=== PATIENT | male | born 1985 | race African-American/Black ===

== ENCOUNTER 2021-03-29 11:13 | Emergency (ER) | payer SELFPAY ==
[2021-03-29 11:14] VITALS: BP 138/95; PULSE 90; RESP 15; TEMP 36.6; O2SAT 100; BMI 19.0
--- NOTE | 2021-03-29 11:23 | RAD_ITS ---
STUDY: X-RAY - UNILATERAL RIBS ( RIGHT ) WITH CHEST REASON FOR EXAM: Male, 35 years old. Status post fall. TECHNIQUE - RIBS: 4 view(s) of the ribs. TECHNIQUE - CHEST: Single frontal view of the chest. COMPARISON: None. FINDINGS - RIBS: Nondisplaced fracture of the anterior right ninth rib. FINDINGS - CHEST: The lungs are clear and expanded. There is no demonstrated pleural abnormality. Normal size heart. Normal mediastinum and vicki. Normal visualized pulmonary arteries. Normal visualized aortic arch and descending thoracic aorta. Normal visualized thoracic spine. There is no demonstrated abnormality of the visualized soft tissue structures of the upper abdomen. RAD/Ribs Uni Min 3V w/PA Chest IMPRESSION: RIBS: Fracture of the anterior right ninth rib. CHEST: No active pulmonary disease. Electronically Signed: Gilberto Yanez MD at 12:10 EDT Tel , Service support ,
--- NOTE | 2021-03-29 11:23 | EX.ED.DYSGE1 ---
HPI History of Present Illness Chief Complaint: Syncope Detail of Chief Complaint: Injury to right ribs that occurred 3 days ago Informant: patient Onset/Context/Timing Current Severity: Moderate Worsened by: Movement and sometimes with cough and deep breath Narrative Narrative: Patient presents to the emergency department complaining of right rib pain since a fall in the shower 3 days ago. Patient was in a tub shower where he is unsure if he passed out or slipped and fell and hit his ribs against the side of the tub. Patient remembers is waking up in the tub. Patient since that time is been having pain to the right ribs with movement and deep breath. He denies any hemoptysis. Denies headache or neck pain. Denies any other injuries. Prior similar symptoms: No PFSH PFSH Home Medications hydrocodone-acetaminophen 1 tab PO Q4H PRN PRN 3 Days #15 tablet 03/29/21 [Rx Last Taken Unknown] Allergy/AdvReac Type Severity Reaction Status Date / Time No Known Allergies Allergy Verified 03/29/21 11:14 Social History Smoking Status: Current every day smoker tobacco type: cigarettes ROS ROS ED Constitutional Constitutional ED: Reports systems reviewed and no addt'l complaints, except as documented; Denies body ache(s), change in weight or chills Eyes Eyes: Denies acute decrease in peripheral vision, change in vision, double vision or loss of vision ENT ENT ED: Reports none; Denies ear pain, lip swelling, loss taste/smell, neck pain, otalgia or sore throat Cardiovascular Cardiovascular: Reports none; Denies abdominal pain, chest pain with activity, leg edema, lightheadedness, palpitations, rapid heart rate or syncope Respiratory/Chest Respiratory/Chest: Reports none and other Details: Right rib pain ; Denies change in mental status, dry cough, dyspnea, hemoptysis, shortness of breath at rest or shortness of breath with exertion Gastrointestinal Gastrointestinal: Reports none; Denies abdominal pain, change in stool character, diarrhea, hematemesis, hematochezia, melena, rectal bleeding or vomiting Genitourinary Genitourinary ED: Reports none; Denies abdominal discomfort, anuria, dysuria, genital pain or polyuria Musculoskeletal Musculoskeletal: Reports none; Denies arthralgias, back pain, difficulty walking, extremity pain, muscle weakness or myalgias Integumentary Reports none; Denies abscess or rash Neurologic Neurologic: Reports none; Denies abnormal gait, confusion, focal weakness, frequent falls, headache(s), loss of vision, numbness, paresthesias, radicular pain, vertigo or weakness Psychiatric Psychiatric: Reports systems reviewed and no addt'l complaints, except as documented and none; Denies behavioral changes, confusion, difficulty concentrating, hallucinations, suicidal ideation, tactile hallucinations or visual hallucinations Endocrine Endocrinology: Denies none, cold intolerance, excessive sweating, fatigue or heat intolerance Hematologic/Lymphatic Hematologic/Lymphatic: Reports none; Denies anemia, easy bleeding or easy bruising Allergic/Immunologic Allergic/Immunologic ED: Denies as per HPI, none, lip swelling, mouth swelling, throat swelling, tongue swelling or hives EXAM Physical Exam Const Vital Signs: 03/29/21 11:14 03/29/21 11:38 Temperature 97.9 F Temperature Source Temporal Pulse Rate 90 Respiratory Rate 15 Respiratory Effort Normal Non-Labored Respiratory Pattern Normal Blood Pressure 138/95 H Blood Pressure Mean 109 Pulse Ox 100 Oxygen Delivery Method Room Air Positive well nourished and well developed General Appearance ED: well developed and NAD HEENT Reports TM's clear and moist mucous membranes normocephalic and atraumatic; Negative for trauma or tenderness Tympanic Membrane ED: Yes TM's clear Eyes PERRL and EOMs intact bilaterally General Eye ED: Negative for pale conjunctiva or scleral icterus Neck no lymphadenopathy, supple and no JVD General: Negative for tenderness Chest Wall inspection of chest normal; Negative for palpation of chest normal Chest Narrative: Patient has tenderness to palpation over the right lower ribs in the midaxillary line that reproduces his pain. There is no crepitus or subcu emphysema noted. No ecchymosis or bruising noted. Chest: Negative for tenderness Resp normal respiratory effort and clear to auscultation bilaterally Effort and Inspection: Negative for respiratory distress or pain with movement Auscultation: Negative for rhonchi, wheezes or diminished lung sounds Cardio regular rate, regular rhythm, S1 normal heart sound, S2 normal heart sound and no murmurs Peripheral Pulses: pulses 2+ throughout GI normal to inspection, nondistended, normoactive bowel sounds, soft to palpation, non-tender, non-distended and no masses Back/Spine no CVA tenderness and no thoracic nor lumbar tenderness Extremity normal to inspection General Extremety ED: Negative for edema General Extremity: Negative for edema Neuro oriented x3, CN's II-XII intact bilaterally, no sensory deficits noted and gait normal Sensorium / Orientation: awake, alert, oriented to person, oriented to place and oriented to time Motor Exam: strength 5/5 throughout and strength abnormal Psych mental status grossly normal Skin no rashes or lesions noted and no wounds MDM MDM MDM Narrative Medical decision making narrative: Patient has fracture of right ninth rib anteriorly. Patient will be given incentive spirometer and a prescription for [facility] for pain. Radiography Diagnostic Testing: Radiology Impression Ribs w/Chest X-Ray 03/29/21 11:23 IMPRESSION: RIBS: Fracture of the anterior right ninth rib. CHEST: No active pulmonary disease. Electronically Signed: Gilberto Yanez MD at 12:10 EDT Tel , Service support , Three-view x-ray of right ribs and chest interpreted by myself as questionable fracture of the right ninth rib. Radiology was in agreement that there was a right ninth rib fracture. Discharge Plan Triage Chief Complaint: Syncope ED Provider: Jalen Simmons Dx/Rx/DC Orders Clinical Impression: Closed rib fracture Instructions: ED Rib Fracture Prescriptions: New hydrocodone-acetaminophen [hydrocodone-acetaminophen] 1 TABLET tablet 1 tab PO Q4H PRN PRN (Reason: Pain) 3 Days Qty: 15 RF: 0 Primary Care Provider: NOT,DEFINED Referrals: Leandro Davis MD [STAFF PHYSICIAN] - 1 Week NOT,DEFINED [Primary Care Provider] - Disposition Disposition: Home, self care
--- NOTE | 2021-03-29 12:29 | ED.RN ---
IS given and educated on device. pt in understanding.
== END 2021-03-29 12:37 | disposition home or self-care (01) ==
PROVIDERS: Emergency Provider Emergency Medicine
DX: S22.31XA Fracture of one rib, right side, initial encounter for closed fracture (principal); W18.2XXA Fall in (into) shower or empty bathtub, initial encounter; Y93.9 Activity, unspecified; Y92.9 Unspecified place or not applicable; F17.210 Nicotine dependence, cigarettes, uncomplicated
CPT/HCPCS: 71101; 99282

== ENCOUNTER 2022-02-24 10:41 | Emergency (ER) | payer SELFPAY ==
[2022-02-24 10:42] VITALS: BP 184/104; PULSE 97; RESP 18; TEMP 36.7; O2SAT 98; BMI 20.7
--- NOTE | 2022-02-24 10:57 | EX.ED.DYSGE1 ---
HPI History of Present Illness Chief Complaint: General Illness Narrative Narrative: Patient who denies significant past medical history presents requesting a work note. He admits to drinking alcohol all weekend and he missed work yesterday. He denies any nausea or vomiting. No diarrhea. No fevers or chills. He is able to take p.o. fluids. He states he slept all day yesterday and did not eat anything. He is able to eat this morning. He presents because he states he wants a note to be excused from work today and yesterday. PFSH PFSH Home Medications hydrocodone-acetaminophen 1 tab PO Q4H PRN PRN 3 Days #15 tablet 03/29/21 [Rx Last Taken Unknown] Allergy/AdvReac Type Severity Reaction Status Date / Time No Known Allergies Allergy Verified 02/24/22 10:43 Social History Smoking Status: Current every day smoker tobacco type: cigarettes ROS ROS ED ROS Narrative Constitutional: No fever, no chills. HEENT: No sore throat. No neck pain. No loss of vision. No rhinorrhea. Cardiovascular: No chest pain. No palpitations. No pedal edema. Respiratory: No cough, no shortness of breath. Abdominal: No abdominal pain. No nausea. No vomiting. Genitourinary: No dysuria. No hematuria. Musculoskeletal: No myalgias. No arthralgias. Neurologic: No headaches. No dizziness. No lightheadedness. Skin: No rash. No change in color. Psychiatric: No depression. No anxiety. EXAM Physical Exam Narrative Exam Narrative: Afebrile. Vital signs noted. HEENT: Normocephalic. Atraumatic. PERRL, EOMI. Neck soft and supple. No point tenderness or step off. Cardiovascular: Regular rate and rhythm. No murmurs, rubs, or gallops appreciated. Respiratory: No tachypnea. Lungs clear to auscultation bilaterally. Gastrointestinal: Abdomen soft, nontender, with normoactive bowel sounds. No rebound or guarding. Neurological: Awake. Alert. Nonfocal, nonlateralizing. Skin: No rash. Normal color. No pallor. Musculoskeletal: No pedal edema. Full range of motion extremities. Const Vital Signs: 02/24/22 10:42 Temperature 98.1 F Temperature Source Temporal Pulse Rate 97 Respiratory Rate 18 Blood Pressure 184/104 H Blood Pressure Mean 130 Pulse Ox 98 Oxygen Delivery Method Room Air MDM MDM MDM Narrative Medical decision making narrative: Patient has an elevated blood pressure here. He was told that this needs to be addressed in the future. He is asymptomatic with this. He states that he is feeling well today, but not 100%. He was told that I am unable to write him a work note for yesterday because he was not seen in the emergency department. He was referred to her primary care physician. I feel he can be discharged safely home. Return instructions were reviewed. Disposition is discharged home in stable condition. Discharge Plan Triage Chief Complaint: General Illness ED Provider: Yong Costa Dx/Rx/DC Orders Clinical Impression: Encounter for medical screening examination, Elevated blood pressure reading without diagnosis of hypertension, Encounter to obtain excuse from work Instructions: ED Screening Exam Medical Nonurgent Prescriptions: No Action hydrocodone-acetaminophen [hydrocodone-acetaminophen] 1 TABLET tablet 1 tab PO Q4H PRN PRN (Reason: Pain) 3 Days Qty: 15 RF: 0 Stand Alone Forms: ED Work / School Excuse Primary Care Provider: Care Physician,No Primary Referrals: Phill Steiner, [STAFF PHYSICIAN] - 1-2 Days if not improving Care Physician,No Primary [Primary Care Provider] - Disposition Disposition: Home, Self Care
== END 2022-02-24 11:21 | disposition home or self-care (01) ==
PROVIDERS: Emergency Provider Emergency Medicine; Visit Provider Emergency Medicine
DX: R03.0 Elevated blood-pressure reading, without diagnosis of hypertension (principal); F17.210 Nicotine dependence, cigarettes, uncomplicated
CPT/HCPCS: 99282

== ENCOUNTER 2023-06-02 20:41 | Emergency (ER) | payer BC, SELFPAY ==
[2023-06-02 20:41] VITALS: BP 142/107; PULSE 101; RESP 15; TEMP 37; O2SAT 99; BMI 18.3
--- NOTE | 2023-06-02 22:15 | EX.ED.VIS.UR ---
HPI HPI - URI History of Present Illness Chief Complaint: Dizziness Informant: patient Narrative Narrative: 2-3 days of lightheadedness when he stands up, no vertiginous or disequilibrium symptoms, it goes away then and no near syncope or syncope. He states in that same period of time, he has had what felt like a mild cold. Nasal congestion without sinus pressure/pain or fevers or chills, some rhinorrhea and postnasal drip, cough that is nonproductive and less he coughs up what is dripping down the back of his throat, no sore throat, neck soreness/stiffness, or earache. Some headaches. No thunderclap onset or anything severe. He has taken no [id number] medications. He became concerned and came to the ER for 2 reasons, #1 he checked his blood pressure at home and it was in the 140s and he was concerned about that because normal for him is lower than that and #2, he needs a note for work. ROS ROS ED Constitutional Constitutional ED: Denies chills or fever(s) Eyes Eyes: Denies blurry vision, change in vision or diplopia ENT ENT ED: Reports headache(s), nasal congestion, nasal discharge and rhinorrhea; Denies ear pain, epistaxis, facial pain, hearing loss, sore throat, tinnitus or vertigo Cardiovascular Cardiovascular: Denies chest pain or palpitations Respiratory/Chest Respiratory/Chest: Reports cough; Denies dyspnea Gastrointestinal Gastrointestinal: Denies abdominal pain, diarrhea, nausea or vomiting Genitourinary Genitourinary ED: Denies dysuria or hematuria Musculoskeletal Musculoskeletal: Denies myalgias or neck pain Integumentary Denies abscess or rash Neurologic Neurologic: Reports headache(s); Denies paresthesias or weakness Psychiatric Psychiatric: Denies depression or suicidal thoughts Endocrine Endocrinology: Denies polydipsia or polyuria PFSH PFSH no medical history Home Medications hydrocodone-acetaminophen 5-325mg 5mg-325mg 1 tab PO Q4H PRN PRN Pain 3 days #15 TABLETS 03/29/21 [Rx Last Taken Unknown] Allergy/AdvReac Type Severity Reaction Status Date / Time No Known Allergies Allergy Verified 06/02/23 20:45 Social History Smoking Status: Current every day smoker tobacco type: cigarettes EXAM Physical Exam Const Vital Signs: 06/02/23 20:41 Temperature 98.6 F Temperature Source Temporal Pulse Rate 101 H Respiratory Rate 15 Blood Pressure 142/107 H Blood Pressure Mean 118 Pulse Ox 99 Oxygen Delivery Method Room Air Positive well nourished and well developed General Appearance ED: well developed and NAD HEENT Reports moist mucous membranes HEENT Narrative: Nasal discharge without significant nasal turbinate edema. normocephalic and atraumatic Face and Sinus: Negative for sinus tenderness or facial tenderness Throat: Negative for posterior oropharynx abnormal Eyes PERRL and EOMs intact bilaterally Neck no lymphadenopathy, supple and no meningeal signs General: Negative for anterior neck swelling Resp normal respiratory effort and clear to auscultation bilaterally Cardio no murmurs Rate: regular rate; Negative for tachycardic Rhythm: regular rhythm Extremity normal to inspection and full ROM Neuro oriented x3, CN's II-XII intact bilaterally and no sensory deficits noted Sensorium / Orientation: alert Motor Exam: strength 5/5 throughout Skin Lesions: no lesions Rashes: no rashes MDM MDM MDM Narrative Medical decision making narrative: Reassured this patient regarding his blood pressure. No treatment indicated, we do not need to put him on antihypertensives right now, he just needs to have this reevaluated when he is feeling better. He is not taking any [id number] decongestants. We discussed what he could take for his symptoms that would not affect his blood pressure and he states he is not interested in taking any cold medicines, if that is all it is he is okay just writing it out, he just wanted to make sure his blood pressure was not dangerous. He has readings here that are in the 140s as well, he is reassured this is not dangerous and he can follow-up as an outpatient for repeat blood pressure check, and he was given a work note. All questions answered at the bedside. We have seen a couple sporadic cases of COVID lately so I offered testing for COVID/influenza he declines both and wants to leave without testing. Discharge Plan Triage Chief Complaint: Dizziness ED Provider: Ron Torres Dx/Rx/DC Orders Clinical Impression: Viral URI with cough Instructions: ED URI, Viral, No Abx (Adult) Prescriptions: No Action hydrocodone-acetaminophen [hydrocodone-acetaminophen] 1 TABLET tablet 1 tab PO Q4H PRN PRN (Reason: Pain) 3 Days Qty: 15 0RF Stand Alone Forms: ED Work / School Excuse Primary Care Provider: Care Physician,No Primary Referrals: Doctor,Your [Non-Staff] - 1-2 Weeks (for BP recheck and reevaluation) Disposition Disposition: Home, Self Care
== END 2023-06-02 22:35 | disposition home or self-care (01) ==
LOC: ED 22:34
PROVIDERS: Emergency Provider Emergency Medicine; Visit Provider Emergency Medicine
DX: J06.9 Acute upper respiratory infection, unspecified (principal); F17.210 Nicotine dependence, cigarettes, uncomplicated; R05.9 Cough, unspecified
CPT/HCPCS: 99282

== ENCOUNTER 2023-06-26 06:29 | Emergency (ER) | payer BC, SELFPAY ==
[2023-06-26 06:31] VITALS: BP 127/97; PULSE 90; RESP 18; TEMP 36.6; O2SAT 98; BMI 17.8
--- NOTE | 2023-06-26 07:17 | EX.ED.DYSGE1 ---
HPI History of Present Illness Chief Complaint: Hypertension Informant: patient Onset/Context/Timing Onset: Weeks (2) Context: Sudden Onset Timing: Continuous Worsened by: Nothing Relieved by: Nothing Narrative Narrative: Patient presents with evaded blood pressure for the past 2 weeks. Patient states that his blood pressure was 141/103 at home. Patient states that he was told by his employer that he needed to have his blood pressure rechecked before he is able to return to work. Patient states he does a lot of lifting at work. Patient denies any chest pain or shortness of breath. Patient denies any nausea or vomiting. Patient denies any headaches or visual changes. Patient denies any neck or back pain. [facility] Medical History (Updated 06/26/23 @ 07:[address] Leandro Lee DO) Hypertension Home Medications NK 06/26/23 [History Last Taken Unknown] Allergy/AdvReac Type Severity Reaction Status Date / Time No Known Allergies Allergy Verified 06/26/23 06:30 Surgical History (Updated 06/26/23 @ 07:[address] Leandro Lee DO) History of facial surgery Social History (Updated 06/26/23 @ 07:[address] Leandro Lee DO) Smoking Status: Current every day smoker tobacco type: cigarettes alcohol intake: current substance use type: marijuana ROS ROS ED Constitutional Constitutional ED: Denies chills or fever(s) Eyes Eyes: Denies blurry vision or change in vision ENT ENT ED: Denies rhinorrhea or sore throat Cardiovascular Cardiovascular: Denies chest pain or palpitations Respiratory/Chest Respiratory/Chest: Denies cough or dyspnea Gastrointestinal Gastrointestinal: Denies nausea or vomiting Genitourinary Genitourinary ED: Denies dysuria or hematuria Musculoskeletal Musculoskeletal: Denies back pain or neck pain Integumentary Denies abscess or rash Neurologic Neurologic: Denies headache(s) or weakness Allergic/Immunologic Allergic/Immunologic ED: Denies mouth swelling or urticaria EXAM Physical Exam Const Vital Signs: 06/26/23 06:31 06/26/23 06:33 Temperature 97.8 F Temperature Source Temporal Pulse Rate 90 Respiratory Rate 18 Respiratory Effort Normal Respiratory Pattern Normal Blood Pressure 127/97 H Blood Pressure Mean 107 Pulse Ox 98 Oxygen Delivery Method Room Air Positive well nourished and well developed General Appearance ED: well developed HEENT Reports moist mucous membranes Neck supple and no JVD Resp normal respiratory effort and clear to auscultation bilaterally Cardio regular rate, regular rhythm and no murmurs GI normal to inspection, nondistended, normoactive bowel sounds and non-tender Palpation: soft Extremity normal to inspection General Extremety ED: Negative for edema or tenderness General Extremity: Negative for edema Neuro oriented x3, CN's II-XII intact bilaterally and no sensory deficits noted Sensorium / Orientation: alert Motor Exam: strength 5/5 throughout Psych mental status grossly normal Skin no rashes or lesions noted MDM MDM MDM Narrative Medical decision making narrative: Patient was advised that his blood pressure today is 127/97. There is no need for emergency treatment of his blood pressure at this time. Patient was given a referral for a primary care physician follow-up to continue to have his blood pressure monitored. Patient was given a note to be able to return to work today. Patient was instructed return if worse in any way. Patient understood and was agreeable with plan. All questions were answered. Discharge Plan Triage Chief Complaint: Hypertension ED Provider: Leandro Lee Dx/Rx/DC Orders Clinical Impression: Elevated blood pressure reading without diagnosis of hypertension Instructions: ED Hypertension, To Be Confirmed Prescriptions: No Action NK Stand Alone Forms: ED Work / School Excuse Primary Care Provider: Care Physician,No Primary Referrals: Leandro Davis MD [Med Staff - Photograph Retoucher] - 5-7 Days Care Physician,No Primary [Primary Care Provider] - Disposition Disposition: Home, Self Care
== END 2023-06-26 07:32 | disposition home or self-care (01) ==
LOC: ED 07:31
PROVIDERS: Emergency Provider Emergency Medicine; Visit Provider Emergency Medicine
DX: R03.0 Elevated blood-pressure reading, without diagnosis of hypertension (principal); F17.210 Nicotine dependence, cigarettes, uncomplicated
CPT/HCPCS: 99282

== ENCOUNTER 2025-04-27 03:06 | Emergency (ER) | payer SELFPAY ==
[2025-04-27 03:07] VITALS: BP 121/81; PULSE 101; RESP 18; TEMP 36.1; O2SAT 99; BMI 19.0
--- NOTE | 2025-04-27 03:19 | RAD_ITS ---
PROCEDURE: WRIST MIN 3 VIEWS 04/27/2025 REASON FOR EXAM: PAIN TECHNIQUE: WRIST MIN 3 VIEWS COMPARISON: No FINDINGS: No acute fracture or dislocation. Old 5th metacarpal neck fracture. RAD/Wrist min 3 Views IMPRESSION: No acute findings Reading Location: [place] [id number]
--- NOTE | 2025-04-27 03:27 | EDS_ITS ---
HPI History of Present Illness Chief Complaint: Upper Extremity Injury Narrative Narrative: Chief complaint and HPI: Right hand and wrist pain. 39-year-old male with no significant past medical history presents for evaluation of right hand and wrist pain. Patient states earlier today around 2 PM he tripped and had a mechanical fall at work. States that he landed on his outstretched hand. States he has had pain in his hand and wrist since the incident. Has taken Aleve and smoked marijuana for the pain. Denies any injury elsewhere. Did not hit his head. No LOC. Denies any numbness or tingling. Review of systems: See HPI Medications: As listed on the chart Allergies: As listed on the chart PFSH: Per chart Vital signs: As listed on the chart. Reviewed. Physical exam: Gen: A&O x3, NAD Head: Normocephalic, atraumatic Eyes: No sclera icterus, injected conjunctiva ENT: Moist mucous membranes Neck: Full range of motion CV: Regular rate Resp: Nonlabored respirations Musc: Full ROM of the right upper extremity including wrist, hand, fingers. Patient has tenderness to palpation of the wrist and hand diffusely on the dorsal aspect, no lacerations or abrasions, no swelling or ecchymosis, no deformity, good capillary refill, radial pulse +2, compartments soft Skin: Warm, dry Neuro: Alert, oriented, grossly intact, sensation intact Psych: Cooperative, appropriate mood and affect [facility] Medical History (Updated 04/27/25 @ 04:[address] Ranjit Mccollum, ) Hypertension Home Medications ?Medication ?Instructions ?Recorded ?Last Taken ?Type NK 06/26/23 Unknown History Allergy/AdvReac Type Severity Reaction Status Date / Time No Known Allergies Allergy Verified 04/27/25 03:09 Surgical History History of facial surgery Social History (Updated 06/26/23 @ 07:[address] Leandro Lee, DO) Smoking Status: Current every day smoker tobacco type: cigarettes alcohol intake: current substance use type: marijuana EXAM Physical Exam Const Vital Signs: 04/27/25 03:07 Temperature 97.0 F L Temperature Source Oral Pulse Rate 101 H Respiratory Rate 18 Blood Pressure 121/81 H Blood Pressure Mean 94 Pulse Ox 99 MDM MDM MDM Narrative Medical decision making narrative: 39-year-old male with no significant past medical history presents for evaluation of right hand and wrist pain. Patient states earlier today around 2 PM he tripped and had a mechanical fall at work. States that he landed on his outstretched hand. States he has had pain in his hand and wrist since the incident. Has taken Aleve and smoked marijuana for the pain. Denies injury elsewhere. Patient states that he does not want to file for Worker's Compensation. Given that patient admits to marijuana abuse, no narcotics will be given. He had already taken Aleve. Declined Tylenol. Differential diagnosis includes but is not limited to contusion, sprain, fracture. X-ray of the right hand and wrist were obtained. X-rays of the right hand and wrist were personally reviewed and interpreted by me, ED physician. No acute fracture or dislocation. Per radiology he has an old fifth metacarpal neck fracture. On reevaluation, patient states that he does have a history of an old fifth metacarpal neck fracture. He has no significant pain in this area on reevaluation. Patient's pain is likely secondary to hand contusion and mild wrist sprain. Recommended RICE therapy. Follow-up with PCP. He confirmed understanding the plan. Impression: 1. Right hand contusion 2. Right wrist sprain 3. Mechanical fall at work Discharge Plan Triage Chief Complaint: Upper Extremity Injury ED Provider: Ranjit Mccollum Dx/Rx/DC Orders Clinical Impression: Contusion of hand, right, Right wrist sprain Instructions: ED Hand Contusion, ED Wrist Sprain Prescriptions: No Action NK Primary Care Provider: Care Physician,No Primary Referrals: Oswald Wright MD [Med Staff - Active Staff] - 3-5 Days Activity Restrictions/Additional Instructions: Tylenol and Motrin as needed for pain. Follow-up with primary care physician. If you do not have one follow-up with the one provided above. Return back to the ED if symptoms change or worsen. Print Language: Citizen Of [place] Disposition Disposition: Home, Self Care Discharge Date/Time: 04/27/25 04:17
--- NOTE | 2025-04-27 03:35 | RAD_ITS ---
PROCEDURE: HAND MIN 3 VIEWS 04/27/2025 REASON FOR EXAM: PAIN TECHNIQUE: HAND MIN 3 VIEWS COMPARISON: No FINDINGS: Old 5th metacarpal neck fracture. No acute fracture or dislocation. RAD/Hand Min 3 Views IMPRESSION: No acute findings Reading Location: [place] [id number]
--- OUTSIDE RECORDS SUMMARY | 2025-04-27 03:39 | XMS RPT_ITS | CCD ---
Author Organization [facility] Care Team Providers Care Service Dispatcher Name Role Phone Unavailable Primary Care Provider Ron Gonzales Attending Unavailable Care Physician, No Primary Primary Care Unava ilable Medications Current Medications Medication Drug Class(es) Dates Sig (Normalized) Sig (Original) [place] (Nk) (1 source) Start: 06-26-2023 [place] (Nk) A ctive June 26, 2023 12:00am Completed/Discontinued Medications Medication Drug Class(es) Dates Sig (Normalized) Sig (Original) acetaminophen 325 mg / HYDROcodone bitartrate 5 mg oral tablet (3 sources) Opioid Agonist Start: 03-29-2021 End: 06-26-2023 take 1 tablet by mouth every four hours as needed Hydrocodone-Acetami nophen Discontinued 1 TABLET PO EVERY 4 HOURS NEEDED 15 March 29, 2021 June 26, 2023 6:30am Problems Problem Classification Problem Date Documented Date Episodic/Chronic Administrative/social admission (6 sources) Patient encounter status; Translations: [Encounter for other administrative examinations] 03-04-2022 Episodic Other circulatory disease (5 sources) Elevated blood-pressure reading without diagnosis of hypertension; Translations: [Elevated blood-pressure reading, without diagnosis of hypertension] 05-10-2023 Episodic Other fractures (3 sources) Fracture of rib; Translations: [Fracture of one rib, unspecified side, initial encounter for closed fracture] 03-29-2021 Episodic Other fractures (3 sources) Closed fracture of rib; Translations: [Fracture of one rib, unspecified side, initial encounter for closed fracture] 03-29-2021 Episodic Other upper respiratory infections (3 sources) Viral upper respiratory tract infection; Translations: [Acute upper respiratory infection, unspecified] Onset: 06-08-2023 06-02-2023 Episodic Syncope (2 sources) Near syncope; Translations: [Syncope and collapse] 05-10-2023 Episodic Results Test Name Value Interpretation Reference Range Nicole bearden Emergency Department Summary on 06-03-2023 Emergency Department Summary [facility] Medical Records Department [address] [place] [address] Emergency Department Summary 06/02/23 MR#: [id number] Acct: [id number] Name: BYRON WOOD Rep #: [id number] : 1985 37 From: Ron Torres MD PCP: Care Physician,No Primary Status:PRE ER Location: ED HPI HPI - URI History of Present Illness Chief Complaint: Dizziness Informant: patient Narrative Narrative: 2-3 days of lightheadedness when he stands up, no vertiginous or disequilibrium symptoms, it goes away then and no near syncope or syncope. He states in that same period of time, he has had what felt like a mild cold. Nasal congestion without sinus pressure/pain or fevers or chills, some rhinorrhea and postnasal drip, cough that is nonproductive and less he coughs up what is dripping down the back of his throat, no sore throat, neck soreness/stiffness, or earache. Some headaches. No thunderclap onset or anything severe. He has taken no uqyi-ihu-citptrk medications. He became concerned and came to the ER for 2 reasons, #1 he checked his blood pressure at home and it was in the 140s and he was concerned about that because normal for him is lower than that and #2, he needs a note for work. ROS ROS ED Constitutional Constitutional ED: Denies chills or fever(s) Eyes Eyes: Denies blurry vision, change in vision or diplopia ENT ENT ED: Reports headache(s), nasal congestion, nasal discharge and rhinorrhea; Denies ear pain, epistaxis, facial pain, hearing loss, sore throat, tinnitus or vertigo Cardiovascular Cardiovascular: Denies chest pain or palpitations Respiratory/Chest Respiratory/Chest: Reports cough; Denies dyspnea Gastrointestinal Gastrointestinal: Denies abdominal pain, diarrhea, nausea or vomiting Genitourinary Genitourinary ED: Denies dysuria or hematuria Musculoskeletal Musculoskeletal: Denies myalgias or neck pain Integumentary Denies abscess or rash Neurologic Neurologic: Reports headache(s); Denies paresthesias or weakness Psychiatric Psychiatric: Denies depression or suicidal thoughts Endocrine Endocrinology: Denies polydipsia or polyuria PFSH PFSH no medical history Home Medications hydrocodone-acetaminoph en 5-325mg 5mg-325mg 1 tab PO Q4H PRN PRN Pain 3 days #15 TABLETS 03/29/21 [Rx Last Taken Unknown] Allergy/AdvReac Type Severity Reaction Status Date / Time No Known Allergies Allergy Verified 06/02/23 20:45 Social History Smoking Status: Current every day smoker tobacco type: cigarettes EXAM Physical Exam Const Vital Signs: 06/02/23 20:41 Temperature 98.6 F Temperature Source Temporal Pulse Rate 101 H Respiratory Rate 15 Blood Pressure 142/107 H Blood Pressure Mean 118 Pulse Ox 99 Oxygen Delivery Method Room Air Positive well nourished and well developed General Appearance ED: well developed and NAD HEENT Reports moist mucous membranes HEENT Narrative: Nasal discharge without significant nasal turbinate edema. normocephalic and atraumatic Face and Sinus: Negative for sinus tenderness or facial tenderness Throat: Negative for posterior oropharynx abnormal Eyes PERRL and EOMs intact bilaterally Neck no lymphadenopathy, supple and no meningeal signs General: Negative for anterior neck swelling Resp normal respiratory effort and clear to auscultation bilaterally Cardio no murmurs Rate: regular rate; Negative for tachycardic Rhythm: regular rhythm Extremity normal to inspection and full ROM Neuro oriented x3, CN's II-XII intact bilaterally and no sensory deficits noted Sensorium / Orientation: alert Motor Exam: strength 5/5 throughout Skin Lesions: no lesions Rashes: no rashes MDM MDM MDM Narrative Medical decision making narrative: Reassured this patient regarding his blood pressure. No treatment indicated, we do not need to put him on antihypertensives right now, he just needs to have this reevaluated when he is feeling better. He is not taking any rwfq-spa-lfvcupk decongestants. We discussed what he could take for his symptoms that would not affect his blood pressure and he states he is not interested in taking any cold medicines, if that is all it is he is okay just writing it out, he just wanted to make sure his blood pressure was not dangerous. He has readings here that are in the 140s as well, he is reassured this is not dangerous and he can follow-up as an outpatient for repeat blood pressure check, and he was given a work note. All questions answered at the bedside. We have seen a couple sporadic cases of COVID lately so I offered testing for COVID/influenza he declines both and wants to leave without testing. Discharge Plan Triage Chief Complaint: Dizziness ED Provider: Ron Torres (more content not included)... Normal [facility] CNOVon 06-02-2023 CNOV Office Visit ([facility] ) BYRON WOOD ([id number]) 1985 M Date Time Provider Department 06/02/23 3:30 PM DUC LIU [facility] During your visit today, we recorded the following information about you: Duc Liu PA-C 06/02/2023 3:33 PM Signed Patient presents to [facility] triage with a chief complaint of near syncope. The past few days he is felt that he may pass out. Feels lightheaded. He was seen here for similar complaints, 05/10/23. Discussed with patient for near syncope would recommend ER evaluation. Patient will go to [facility] ED. Allergies As of Date: 06/02/2023 (No Known Allergies) Date Reviewed: 05/10/2023 Reviewed by: Margarita Chavez MA - Fully Assessed Primary Visit Diagnosis:Near syncope [R55] Problem List As Of Date: 06/02/2023 (None) Encounter Status:Closed by DUC LIU on 06/02/23 [facility] CNOVon 05-10-2023 CNOV Office Visit ([facility] ) BYRON WOOD ([id number]) 1985 M Date Time Provider Department 05/10/23 4:45 PM KATYA ECHEVERRIA [facility] During your visit today, we recorded the following information about you: Temperature Pulse Respiration Blood pressure 97.5 degrees 99/minute 18/minute 140/92 Weight 60.9 kg Katya Echeverria APRN.WELDING MACHINE OPERATOR GAS 05/10/2023 5:06 PM Signed Subjective Dizziness The patient's pertinent negatives include no focal weakness or weakness. Associated symptoms include dizziness. Pertinent negatives include no abdominal pain, chest pain, fever, headaches, nausea, shortness of breath or vomiting. Byron Wood is a 37 year old male who presents to [facility] care for a work excuse. He was seeing spots last night and almost passed out so had to leave work. He slept more than usual today and feels better now. He needs a note to return to work. He denies any fever or chills or nausea or vomiting. He has not had any episodes today like he had last night at work. His blood pressure is noted to be slightly elevated at 140/92. He has a family history of heart disease. Review of Systems Constitutional: Negative for chills and fever. HENT: Negative for congestion, ear pain and sore throat. Eyes: Negative for blurred vision and double vision. Respiratory: Negative for cough and shortness of breath. Cardiovascular: Negative for chest pain. Gastrointestinal: Negative for abdominal pain, nausea and vomiting. Genitourinary: Negative. Musculoskeletal: Negative for myalgias. Skin: Negative for rash. Neurological: Positive for dizziness. Negative for tingling, tremors, sensory change, speech change, focal weakness, seizures, loss of consciousness, weakness and headaches. BP 140/92 Pulse 99 Temp 36.4 ?C (97.5 ?F) Resp 18 Wt 60.9 kg (134 lb 3.2 oz) SpO2 99% No past medical history on file. No past surgical history on file. ALLERGIES Patient has no known allergies. MEDICATIONS No prescriptions on file. No family history on file. Social History Tobacco Use Smoking status: Every Day Types: Cigarettes Smokeless tobacco: Never Objective Physical Exam Vitals and nursing note reviewed. Constitutional: Appearance: Normal appearance. HENT: Right Ear: Tympanic membrane, ear canal and external ear normal. Left Ear: Tympanic membrane, ear canal and external ear normal. Nose: Nose normal. Mouth/Throat: Mouth: Mucous membranes are moist. Pharynx: Oropharynx is clear. Uvula midline. No oropharyngeal exudate or posterior oropharyngeal erythema. Cardiovascular: Rate and Rhythm: Normal rate and regular rhythm. Heart sounds: Normal heart sounds. Pulmonary: Effort: Pulmonary effort is normal. No respiratory distress. Breath sounds: Normal breath sounds. No wheezing or rales. Musculoskeletal: Cervical back: Neck supple. Lymphadenopathy: Cervical: No cervical adenopathy. Skin: General: Skin is warm and dry. Findings: No erythema or rash. Neurological: Mental Status: He is alert. ASSESSMENT/PLAN: 1. Near syncope - ICD9: 780.2, ICD10: R55 (primary diagnosis) - GLUCOSE, BLOOD (POC)- 150 in office. - UA DIP, URINE (POC)- no sign of dehydration. 2. Elevated blood pressure reading without diagnosis of hypertension - ICD9: 796.2, ICD10: R03.0 - Encouraged dietary sodium restriction/DASH diet - Recommended regular aerobic exercise. - Recommend home blood pressure monitoring, to bring results in on next visit. Patient will return to [facility] on 05/18/23 for BP recheck. If it is still elevated, I will see him and determine further treatment at that time. He does not currently have a PCP. - Encouraged avoidance of excessive alcohol intake - Reviewed risks of HTN and principles of treatment - Goal of BP <130/80 - Patient counseled on smoking cessation. - Follow-up with your PCP in 3-5 days if symptoms have not improved or sooner if symptoms worsen - Discussed red flags and need for immediate medical evaluation if any occur. - Discussed supportive care treatment with fluids, rest and analgesia. - Discussed expected course of illness ARJUN Rosenthal APRN.CNP 05/10/2023 5:00 PM Addendum ASSESSMENT/PLAN: 1. Near syncope - ICD9: 780.2, ICD10: R55 (primary diagnosis) - GLUCOSE, BLOOD (POC)- 150 in office. - UA DIP, URINE (POC)- no sign of dehydration. 2. Elevated blood pressure reading without diagnosis of hypertension - ICD9: 796.2, ICD10: R03.0 - Encouraged dietary sodium restriction/DASH diet - Recommended regular aerobic exercise. - Recommend home blood pressure monitoring, to bring results in on next visit - Encouraged avoidance of excessive alcohol intake - Reviewed risks of HTN and principles of treatment - Goal of BP <130/80 - Patient counseled on smoking cessation. - Follow-up with your PCP in 3-5 days (more content not included)... [facility] GLUCOSE, BLOOD (POC)on 05-10 Glucose [Mass/Vol] 150 mg/dL Abnormal 74 - 99 mg/dL [facility] UA DIP, URINE (POC)on 2022 BILIRUBIN UA (POCT) Negative Negative [facility] CLARITY UA (POCT) Clear [facility] COLOR UA (POCT) Yellow [facility] GLUCOSE UA (POCT) Negative Negative mg/dL [facility] HEMOGLOBIN/BLOOD UA (POCT) Negative Negative [facility] KETONE UA (POCT) Negative Negative mg/dL [facility] LEUKOCYTES UA (POCT) Negative Negative [facility] NITRITE UA (POCT) Negative Negative [facility] PH UA (POCT) 6.0 4.5 - 8.0 [facility] Protein Ql (U) Trace Abnormal Negative mg/dL [facility] SPECIFIC GRAVITY UA (POCT) 1.010 1.005 - 1.030 [facility] UROBILINOGEN UA (POCT) 0.2 E.U./dL Normal E.U./dL [facility] Vital Signs Date Time Vital Sign Value Performing Clinician Pro fernandez 06-26-2023 06:31-0400 Body height 185.42 cm [facility] 06-26-2023 06:31-0400 Body mass index (BMI) [Ratio] 17.8 kg/m2 [facility] 06-26-2023 06:31-0400 Body temperature 97.8 [degF] [facility] 06-26-2023 06:31-0400 Body weight 61.23 kg [facility] 06-26-2023 06:31-0400 Diastolic blood pressure 97 mm[Hg] [facility] 06-26-2023 06:31-0400 Heart rate 90 /min [facility] 06-26-2023 06:31-0400 Respiratory rate 18 /min [facility] 06-26-2023 06:31-0400 SaO2% (BldA) [Mass fraction] 98 % [facility] 06-26-2023 06:31-0400 Systolic blood pressure 127 mm[Hg] [facility] 06-02-2023 20:41-0400 Body height 185.42 cm [facility] 06-02-2023 20:41-0400 Body mass index (BMI) [Ratio] 18.3 kg/m2 [facility] 06-02-2023 20:41-0400 Body temperature 98.6 [degF] [facility] 06-02-2023 20:41-0400 Body weight 62.95 kg [facility] 06-02-2023 20:41-0400 Diastolic blood pressure 107 mm[Hg] [facility] 06-02-2023 20:41-0400 Heart rate 101 /min [facility] 06-02-2023 20:41-0400 Respiratory rate 15 /min [facility] 06-02-2023 20:41-0400 SaO2% (BldA) [Mass fraction] 99 % [facility] 06-02-2023 20:41-0400 Systolic blood pressure 142 mm[Hg] [facility] 05-10-2023 16:39-0400 Body temperature 97.5 [degF] Katya Praisler-Wood SOFTWARE SPECIALIST.WELDING MACHINE OPERATOR GAS Work Phone: [facility] 05-10-2023 16:39-0400 Body weight 60.87 kg Katya Praisler-Wood SOFTWARE SPECIALIST.WELDING MACHINE OPERATOR GAS Work Phone: [facility] 05-10-2023 16:39-0400 Diastolic blood pressure 92 mm[Hg] Katya Praisler-Wood SOFTWARE SPECIALIST.WELDING MACHINE OPERATOR GAS Work Phone: [facility] 05-10-2023 16:39-0400 Heart rate 99 /min Katya Praisler-Wood SOFTWARE SPECIALIST.WELDING MACHINE OPERATOR GAS Work Phone: [facility] 05-10-2023 16:39-0400 Respiratory rate 18 /min Katya Praisler-Wood SOFTWARE SPECIALIST.WELDING MACHINE OPERATOR GAS Work Phone: [facility] 05-10-2023 16:39-0400 SaO2% (BldA) [Mass fraction] 99 % Katyayamilet Echeverria APRN.WELDING MACHINE OPERATOR GAS Work Phone: [facility] 05-10-2023 16:39-0400 Systolic blood pressure 140 mm[Hg] Katya Echeverria APRN.WELDING MACHINE OPERATOR GAS Work Phone: [facility] 02-24-2022 10:42-0400 Body height 177.8 cm [facility] Work Phone: 02-24-2022 10:42-0400 Body mass index (BMI) [Ratio] 20.7 kg/m2 [facility] Work Phone: 02-24-2022 10:42-0400 Body temperature 98.1 [degF] [facility] Work Phone: 02-24-2022 10:42-0400 Body weight 65.77 kg [facility] Work Phone: 02-24-2022 10:42-0400 Diastolic blood pressure 104 mm[Hg] [facility] Work Phone: 02-24-2022 10:42-0400 Heart rate 97 /min [facility] Work Phone: 02-24-2022 10:42-0400 Respiratory rate 18 /min [facility] Work Phone: 02-24-2022 10:42-0400 SaO2% (BldA) [Mass fraction] 98 % [facility] Work Phone: 02-24-2022 10:42-0400 Systolic blood pressure 184 mm[Hg] [facility] Work Phone: Encounters Encounter Date Encounter Type Care Provider Facility Start: 06-26-2023 End: 06-26-2023 Emergency department patient visit [facility] Work Phone: Start: 06-02-2023 End: 06-03-2023 Emergency department patient visit Ron Torres Facility:[facility] Start: 06-02-2023 End: 06-02-2023 Emergency department patient visit [facility] Work Phone: Start: 06-02-2023 End: 06-02-2023 ambulatory Facility:[facility] Start: 06-02-2023 End: 06-02-2023 Patient encounter procedure Duc Liu PA-C Work Phone: [facility] Comment on above: Near syncope (Primar y Dx) Start: 05-10-2023 End: 05-10-2023 ambulatory Facility:[facility] Start: 05-10-2023 End: 05-10-2023 Patient encounter procedure Katya Echeverria APRN.CNP Work Phone: [facility] Comment on above: Near syncope (Primar y Dx); Elevated blood pressure reading without diagnosis of hypertension Start: 02-24-2022 End: 02-24-2022 Emergency department patient visit [facility] Procedures Date Procedure Procedure Detail Performing Clinician Start: 05-10-2023 Urnls dip stick/tabl et rgnt auto w/o microscopy Katya Echeverria APRN.CNP Work Phone: Start: 05-10-2023 Gluc bld gluc mntr d ev cleared fda spec home use Katya Echeverria APRN.CNP Work Phone: Plan of Treatment Date Care Activity Detail Author Start: 07-02-2023 Influenza vaccination INFLUENZA (#1) [facility] Start: 11-01-2022 DEPRESSION ASSESSMENT DEPRESSION ASSESSMENT [facility] Start: 2020 LIPID SCREEN LIPID SCREEN [facility] Start: 2004 Urine microalbumin profile DTAP,TDAP,TD (1 - Tdap) [facility] Start: 2003 HEPATITIS C SCREENING HEPATITIS C SCREENING [facility] Start: 2003 HIV SCREENING HIV SCREENING [facility] Start: 1991 PNEUMOCOCCAL (1 - PCV) PNEUMOCOCCAL (1 - PCV) [facility] Start: 04-20-1986 COVID-19 VACCINE (#1) COVID-19 VACCINE (#1) [facility] Start: 1985 HEPATITIS B (1 of 3 - 3-dose series) HEPATITIS B (1 of 3 - 3-dose series) [facility] Patient Education [facility] Work Phone: Patient referral [facility] Work Phone: Payers Date Payer Category Payer Self-pay [id number] 2023 Unknown [id number] Unknown [id number] Social History Date Type Detail Facility Start: 02-24-2022 End: 06-26-2023 Tobacco smoking status NJIS Unknown if ever smoked [facility] Start: 1985 Sex Assigned At Male [facility] Start: 05-10-2023 Tobacco smoking stat [facility] Smokes tobacco daily [facility] History of tobacco use Cigarette Smoker [facility] Start: 05-10-2023 Tobacco use and exposure Smokeless tobacco non-user [facility] Start: 05-10-2023 History of Social function [facility] Start: 05-10-2023 Tobacco use panel [facility] Start: 1985 Sex Assigned At [facility] Mental Status Date Assessment Result Facility 06-26-2023 Cognitive function Level Of Cons ciousness Awake;Alert;Appropriate;Follow s Commands [facility] Work Phone: 06-02-2023 Cognitive function Level Of Cons ciousness Awake;Alert;Appropriate;Follow s Commands [facility] Work Phone: 02-24-2022 Cognitive function Level Of Cons ciousness Awake;Alert;Appropriate;Follow s Commands [facility] Work Phone: Progress note 06-02-2023 Note Date & Type Note Facility 06-02-2023 Note HNO ID: [id number] Author: Athy, Duc R, PA-C Service: ? Author Type: Physician Radar Scientist Type: Progress Notes Filed: 06/02/2023 3:33 PM Note Text: Patient presents to express care triage with a chief complaint of near syncope. The past few days he is felt that he may pass out. Feels lightheaded. He was seen here for similar complaints, 05/10/23. Discussed with patient for near syncope would recommend ER evaluation. Patient will go to [facility] ED. [facility] History of Present illness Narrative 06-02-2023 Duc Liu PA-C - 06/02/2023 3:31 PM EDT Note Date & Type Note Facility 06-02-2023 History of Presen t illness Narrative Patient presents to express care triage with a chief complaint of near syncope. The past few days he is felt that he may pass out. Feels lightheaded. He was seen here for similar complaints, 05/10/23. Discussed with patient for near syncope would recommend ER evaluation. Patient will go to [facility] ED. documented in this encounter [facility] Discharge summary 06-02-2023 Note Date & Type Note Facility 06-02-2023 Discharge summary Note Date/Time June 02, 2023 10:20pm [facility] Medical Records Department [address] [place] [address] Emergency Department Summary 06/02/23 MR#: [id number] Acct: [id number] Name: BYRON WOOD Rep #:[id number] : 1985 37 From: Ron Torres MD PCP: Care Physician,No Primary Status :PRE ER Location: ED HPI HPI - URI History of Present Illness Chief Complaint: Dizziness Informant: patient Narrative Narrative: 2-3 days of lightheadedness when he stands up, no vertiginous or disequilibrium symptoms, it goes away then and no near syncope or syncope. He states in that same period of time, he has had what felt like a mild cold. Nasal congestion without sinus pressure/pain or fevers or chills, some rhinorrhea and postnasal drip, cough that is nonproductive and less he coughs up what is dripping down the back of his throat, no sore throat, neck soreness/stiffness, or earache. Some headaches. No thunderclap onset or anything severe. He has taken no ydpy-syi-viypehq medications. He became concerned and came to the ER for 2 reasons, #1 he checked his blood pressure at home and it was in the 140s and he was concerned about that because normal for him is lower than that and #2, he needs a note for work. ROS ROS ED Constitutional Constitutional ED: Denies chills or fever(s) Eyes Eyes: Denies blurry vision, change in vision or diplopia ENT ENT ED: Reports headache(s), nasal congestion, nasal discharge and rhinorrhea; Denies ear pain, epistaxis, facial pain, hearing loss, sore throat, tinnitus or vertigo Cardiovascular Cardiovascular: Denies chest pain or palpitations Respiratory/Chest Respiratory/Chest: Reports cough; Denies dyspnea Gastrointestinal Gastrointestinal: Denies abdominal pain, diarrhea, nausea or vomiting Genitourinary Genitourinary ED: Denies dysuria or hematuria Musculoskeletal Musculoskeletal: Denies myalgias or neck pain Integumentary Denies abscess or rash Neurologic Neurologic: Reports headache(s); Denies paresthesias or weakness Psychiatric Psychiatric: Denies depression or suicidal thoughts Endocrine Endocrinology: Denies polydipsia or polyuria PFSH PFSH no medical history Home Medications hydrocodone-acetaminophen 5-325mg 5mg-325mg 1 tab PO Q4H PRN PRN Pain 3 days #15TABLETS 03/29/21 [Rx Last Taken Unknown] Allergy/AdvReac Type Severity Reaction Status Date / Time No Known Allergies Allergy Verified 06/02/23 20:45 Social History Smoking Status: Current every day smoker tobacco type: cigarettes EXAM Physical Exam Const Vital Signs: 06/02/23 20:41 Temperature 98.6 F Temperature Source Temporal Pulse Rate 101 H Respiratory Rate 15 Blood Pressure 142/107 H Blood Pressure Mean 118 Pulse Ox 99 Oxygen Delivery Method Room Air Positive well nourished and well developed General Appearance ED: well developed and NAD HEENT Reports moist mucous membranes HEENT Narrative: Nasal discharge without significant nasal turbinate edema. normocephalic and atraumatic Face and Sinus: Negative for sinus tenderness or facial tenderness Throat: Negative for posterior oropharynx abnormal Eyes PERRL and EOMs intact bilaterally Neck no lymphadenopathy, supple and no meningeal signs General: Negative for anterior neck swelling Resp normal respiratory effort and clear to auscultation bilaterally Cardio no murmurs Rate: regular rate; Negative for tachycardic Rhythm: regular rhythm Extremity normal to inspection and full ROM Neuro oriented x3, CN's II-XII intact bilaterally and no sensory deficits noted Sensorium / Orientation: alert Motor Exam: strength 5/5 throughout Skin Lesions: no lesions Rashes: no rashes MDM MDM MDM Narrative Medical decision making narrative: Reassured this patient regarding his blood pressure. No treatment indicated, wedo not need to put him on antihypertensives right now, he just needs to have this reevaluated when he is feeling better. He is not taking any [id number] decongestants. We discussed what he could take for his symptoms that would not affect his blood pressure and he states he is not interested in taking any cold medicines, if that is all it is he is okay just writing it out, he just wanted to make sure his blood pressure was not dangerous. He has readings here that are in the 140s as well, he is reassured this is not dangerous and he can follow-up as an outpatient for repeat blood pressure check, and he was given a work note. All questions answered at the bedside. We have seen a couple sporadic cases of COVID lately so I offered testing for COVID/influenza he declines both and wants to leave without testing. Discharge Plan Triage Chief Complaint: Dizziness ED Provider: Ron Torres Dx/Rx/DC Orders Clinical Impression: Viral URI with cough Instructions: ED URI, Viral, No Abx (Adult) Prescriptions: No Action hydrocodone-acetaminophen [hydrocodone-acetaminophen] 1 TABLET tablet 1 tab PO Q4H PRN PRN (Reason: Pain) 3 Days Qty: 15 0RF Stand Alone Forms: ED Work / School Excuse Primary Care Provider: Care Physician,No Primary Referrals: Doctor,Your [Non-Staff] - 1-2 Weeks (for BP recheck and reevaluation) Disposition Disposition: Home, Self Care What to do if you have Problems For any increased pain, shortness of breath, bleeding, nausea or vomiting, chestpain, or any unexpected problems, contact your Primary Care Provider. Call [facility] ([phone]) or report to the closest Emergency Room. Call 911 if necessary. 06/02/232219 <Electronically signed by Ron Torres MD> Cosigner Signature (if applicable): CC: No Primary Care Physician ~ Signed [facility] Work Phone: Progress note 05-10-2023 Note Date & Type Note Facility 05-10-2023 Note HNO ID: [id number] Author: Katya Echeverria APRN.WELDING MACHINE OPERATOR [employer] Service: ? Author Type: Nurse Practitioner Type: Progress Notes Filed: 05/10/2023 5:06 PM Note Text: Subjective Dizziness The patient's pertinent negatives include no focal weakness or weakness. Associated symptoms include dizziness. Pertinent negatives include no abdominal pain, chest pain, fever, headaches, nausea, shortness of breath or vomiting. Byron Wood is a 37 year old male who presents to [facility] care for a work excuse. He was seeing spots last night and almost passed out so had to leave work. He slept more than usual today and feels better now. He needs a note to return to work. He denies any fever or chills or nausea or vomiting. He has not had any episodes today like he had last night at work. His blood pressure is noted to be slightly elevated at 140/92. He has a family history of heart disease. Review of Systems Constitutional: Negative for chills and fever. HENT: Negative for congestion, ear pain and sore throat. Eyes: Negative for blurred vision and double vision. Respiratory: Negative for cough and shortness of breath. Cardiovascular: Negative for chest pain. Gastrointestinal: Negative for abdominal pain, nausea and vomiting. Genitourinary: Negative. Musculoskeletal: Negative for myalgias. Skin: Negative for rash. Neurological: Positive for dizziness. Negative for tingling, tremors, sensory change, speech change, focal weakness, seizures, loss of consciousness, weakness and headaches. BP 140/92 Pulse 99 Temp 36.4 ?C (97.5 ?F) Resp 18 Wt 60.9 kg (134 lb 3.2 oz) SpO2 99% No past medical history on file. No past surgical history on file. ALLERGIES Patient has no known allergies. MEDICATIONS No prescriptions on file. No family history on file. Social History Tobacco Use Smoking status: Every Day Types: Cigarettes Smokeless tobacco: Never Objective Physical Exam Vitals and nursing note reviewed. Constitutional: Appearance: Normal appearance. HENT: Right Ear: Tympanic membrane, ear canal and external ear normal. Left Ear: Tympanic membrane, ear canal and external ear normal. Nose: Nose normal. Mouth/Throat: Mouth: Mucous membranes are moist. Pharynx: Oropharynx is clear. Uvula midline. No oropharyngeal exudate or posterior oropharyngeal erythema. Cardiovascular: Rate and Rhythm: Normal rate and regular rhythm. Heart sounds: Normal heart sounds. Pulmonary: Effort: Pulmonary effort is normal. No respiratory distress. Breath sounds: Normal breath sounds. No wheezing or rales. Musculoskeletal: Cervical back: Neck supple. Lymphadenopathy: Cervical: No cervical adenopathy. Skin: General: Skin is warm and dry. Findings: No erythema or rash. Neurological: Mental Status: He is alert. ASSESSMENT/PLAN: 1. Near syncope - ICD9: 780.2, ICD10: R55 (primary diagnosis) - GLUCOSE, BLOOD (POC)- 150 in office. - UA DIP, URINE (POC)- no sign of dehydration. 2. Elevated blood pressure reading without diagnosis of hypertension - ICD9: 796.2, ICD10: R03.0 - Encouraged dietary sodium restriction/DASH diet - Recommended regular aerobic exercise. - Recommend home blood pressure monitoring, to bring results in on next visit. Patient will return to [facility] Care on 05/18/23 for BP recheck. If it is still elevated, I will see him and determine further treatment at that time. He does not currently have a PCP. - Encouraged avoidance of excessive alcohol intake - Reviewed risks of HTN and principles of treatment - Goal of BP <130/80 - Patient counseled on smoking cessation. - Follow-up with your PCP in 3-5 days if symptoms have not improved or sooner if symptoms worsen - Discussed red flags and need for immediate medical evaluation if any occur. - Discussed supportive care treatment with fluids, rest and analgesia. - Discussed expected course of illness Katya Echeverria APRN.WELDING MACHINE OPERATOR GAS [facility] Instructions 05-10-2023 Patient Instructions Note Date & Type Note Facility 05-10-2023 Instructions Katya Echeverria APRN.KATELYN - 05/10/2023 4:48 PM EDT ASSESSMENT/PLAN: 1. Near syncope - ICD9: 780.2, ICD10: R55 (primary diagnosis) - GLUCOSE, BLOOD (POC)- 150 in office. - UA DIP, URINE (POC)- no sign of dehydration. 2. Elevated blood pressure reading without diagnosis of hypertension - ICD9: 796.2, ICD10: R03.0 - Encouraged dietary sodium restriction/DASH diet - Recommended regular aerobic exercise. - Recommend home blood pressure monitoring, to bring results in on next visit - Encouraged avoidance of excessive alcohol intake - Reviewed risks of HTN and principles of treatment - Goal of BP <130/80 - Patient counseled on smoking cessation. - Follow-up with your PCP in 3-5 days if symptoms have not improved or sooner if symptoms worsen - Discussed red flags and need for immediate medical evaluation if any occur. - Discussed supportive care treatment with fluids, rest and analgesia. - Discussed expected course of illness Katya Echeverria APRN.KATELYN documented in this encounter [facility] History of Present illness Narrative 05-10-2023 Katya Echeverria APRN.WELDING MACHINE OPERATOR G[employer] - 05/10/2023 4:37 PM EDT Note Date & Type Note Facility 05-10-2023 History of Presen t illness Narrative Subjective Dizziness The patient's pertinent negatives include no focal weakness or weakness. Associated symptoms include dizziness. Pertinent negatives include no abdominal pain, chest pain, fever, headaches, nausea, shortness of breath or vomiting. Byron Wood is a 37 year old male who presents to [facility] care for a work excuse. He was seeing spots last night and almost passed out so had to leave work. He slept more than usual today and feels better now. He needs a note to return to work. He denies any fever or chills or nausea or vomiting. He has not had any episodes today like he had last night at work. His blood pressure is noted to be slightly elevated at 140/92. He has a family history of heart disease. Review of Systems Constitutional: Negative for chills and fever. HENT: Negative for congestion, ear pain and sore throat. Eyes: Negative for blurred vision and double vision. Respiratory: Negative for cough and shortness of breath. Cardiovascular: Negative for chest pain. Gastrointestinal: Negative for abdominal pain, nausea and vomiting. Genitourinary: Negative. Musculoskeletal: Negative for myalgias. Skin: Negative for rash. Neurological: Positive for dizziness. Negative for tingling, tremors, sensory change, speech change, focal weakness, seizures, loss of consciousness, weakness and headaches. BP 140/92 Pulse 99 Temp 36.4 C (97.5 F) Resp 18 Wt 60.9 kg (134 lb 3.2 oz) SpO2 99% No past medical history on file. No past surgical history on file. ALLERGIES Patient has no known allergies. MEDICATIONS No prescriptions on file. No family history on file. Social History Tobacco Use Smoking status: Every Day Types: Cigarettes Smokeless tobacco: Never Objective Physical Exam Vitals and nursing note reviewed. Constitutional: Appearance: Normal appearance. HENT: Right Ear: Tympanic membrane, ear canal and external ear normal. Left Ear: Tympanic membrane, ear canal and external ear normal. Nose: Nose normal. Mouth/Throat: Mouth: Mucous membranes are moist. Pharynx: Oropharynx is clear. Uvula midline. No oropharyngeal exudate or posterior oropharyngeal erythema. Cardiovascular: Rate and Rhythm: Normal rate and regular rhythm. Heart sounds: Normal heart sounds. Pulmonary: Effort: Pulmonary effort is normal. No respiratory distress. Breath sounds: Normal breath sounds. No wheezing or rales. Musculoskeletal: Cervical back: Neck supple. Lymphadenopathy: Cervical: No cervical adenopathy. Skin: General: Skin is warm and dry. Findings: No erythema or rash. Neurological: Mental Status: He is alert. ASSESSMENT/PLAN: 1. Near syncope - ICD9: 780.2, ICD10: R55 (primary diagnosis) - GLUCOSE, BLOOD (POC)- 150 in office. - UA DIP, URINE (POC)- no sign of dehydration. 2. Elevated blood pressure reading without diagnosis of hypertension - ICD9: 796.2, ICD10: R03.0 - Encouraged dietary sodium restriction/DASH diet - Recommended regular aerobic exercise. - Recommend home blood pressure monitoring, to bring results in on next visit. Patient will return to [facility] Care on 05/18/23 for BP recheck. If it is still elevated, I will see him and determine further treatment at that time. He does not currently have a PCP. - Encouraged avoidance of excessive alcohol intake - Reviewed risks of HTN and principles of treatment - Goal of BP <130/80 - Patient counseled on smoking cessation. - Follow-up with your PCP in 3-5 days if symptoms have not improved or sooner if symptoms worsen - Discussed red flags and need for immediate medical evaluation if any occur. - Discussed supportive care treatment with fluids, rest and analgesia. - Discussed expected course of illness Katya Echeverria APRN.WELDING MACHINE OPERATOR G[employer] documented in this encounter [facility] Evaluation note Note Date & Type Note Facility Evaluation note No assessment information availa [facility] Work Phone: Evaluation note Note Date & Type Note Facility Evaluation note Diagnosis Near syncope- Primary Syncope and collapse Elevated blood pressure reading without diagnosis of hypertension documented in this encounter [facility] Evaluation note Note Date & Type Note Facility Evaluation note Diagnosis Near syncope- Primary Syncope and collapse documented in this encounter [facility] Chief Complaint and Reason for Visit Chief Complaint DEHYDRATED Chief Complaint DIZZINESS Chief Complaint DIZZINESS hypertension blood pressure check Advance Directives No Advanced Directives Records Found Advance Directive Response Recorded Date/ Time Living Will No February 24, 2022 11:15am Power of Tool Crib Attendant No February 24 22 11:15am Advance Directive Response Recorded Date/ Time Living Will No June 02, 2023 10:21pm Power of Tool Crib Attendant No June 02 23 10:21pm Advance Directive Response Recorded Date/ Time Living Will No June 26 6:31am Power of Tool Crib Attendant No June 26 023 6:31am Summary Purpose Family History No Family History Records FoundNo Family History Records Found Additional Source Comments Goals (unrecognized section and content) Goals may be documented in a n alternate sectionGoals may be documented in an alternate sectionGoals may be documented in an alternate section Source Comments (unrecognize d section and content) In the event this informatio n is protected by the Federal Confidentiality of Alcohol and Drug Abuse Patient Records regulations: The Federal rules restrict any use of the information to criminally investigate or prosecute any alcohol or drug abuse patient.[facility] the event this information is protected by the Federal Confidentiality of Alcohol and Drug Abuse Patient Records regulations: The Federal rules restrict any use of the information to criminally investigate or prosecute any alcohol or drug abuse patient.[facility] Reason for Visit (unrecogniz ed section and content) Reason Comments Dizziness X last night Care Teams (unrecognized sec tion and content) Team Status: Active Member Role Status Dates No Primary Care Physician Primary Care Provider Active Team Status: Inactive Member Role Status Dates No Primary Care Physician Primary Care Provider Active Dr. Ron Torres MD Emergency Provider Active Team Status: Inactive Member Role Status Dates No Primary Care Physician Primary Care Provider Active Dr. Ron Torres MD Attending Provider, Emergency Provider Active Team Status: Inactive Member Role Status Dates No Primary Care Physician Primary Care Provider Active Dr. Leandro Lee DO Emergency Provider Active (unrecognized sect ion and content) No Status Records FoundNo Status Records Found INFORMATION SOURCE (unrecogn ized section and content) DATE CREATED AUTHOR 06/08/2023 [facility] DATE CREATED AUTHOR AUTHOR'S GEO SOLITARIO 08/07/2023 [facility] FOR RECORDS PERTAINING TO PATIENTS WHO ARE OR HAVE BEEN ENROLLED IN A CHEMICAL DEPENDENCY/SUBSTANCEABUSE PROGRAM, SOME INFORMATION MAY BE OMITTED. This clinical summary was aggregated from multiple sources. Caution should be exercised in using it in the provision of clinical care. This summary normalizes information from multiple sources, and as a consequence, information in this document may materially change the coding, format and clinical context of patient data. In addition, data may be omitted in some cases. CLINICAL DECISIONS SHOULD BE BASED ON THE PRIMARY CLINICAL RECORDS. [employer] [facility]. provides no warranty or guarantee of the accuracy or completeness of information in this document.
[2025-04-27 04:16] VITALS: BP 121/81; PULSE 84; RESP 18; TEMP 36.1; O2SAT 99
== END 2025-04-27 04:17 | disposition home or self-care (01) ==
PROVIDERS: Emergency Provider Surgery; Visit Provider Surgery
DX: S60.221A Contusion of right hand, initial encounter (principal); S63.91XA Sprain of unspecified part of right wrist and hand, initial encounter; W01.0XXA Fall on same level from slipping, tripping and stumbling without subsequent striking against object, initial encounter; Y92.89 Other specified places as the place of occurrence of the external cause; I10 Essential (primary) hypertension; F17.210 Nicotine dependence, cigarettes, uncomplicated
CPT/HCPCS: 73110; 73130; 99282

== ENCOUNTER 2025-05-01 15:02 | Emergency (ER) | payer SELFPAY ==
[2025-05-01 15:02] VITALS: BP 114/102; PULSE 94; RESP 16; TEMP 35.9; O2SAT 97; BMI 18.8
--- NOTE | 2025-05-01 15:05 | RAD_ITS ---
PROCEDURE: HAND MIN 3 VIEWS 05/01/2025 REASON FOR EXAM: PAIN TECHNIQUE: HAND MIN 3 VIEWS COMPARISON: Right hand study of 04/27/2025. RAD/Hand Min 3 Views IMPRESSION: An old healed right 5th metacarpal fracture is again noted. No radiopaque foreign body is seen. Satisfactory osseous alignment is seen. No fracture site is evident. If clinical concern persists, short-term follow-up imaging may be obtained to r ule out a currently occult fracture. Reading Location: [id number]
--- NOTE | 2025-05-01 18:07 | ED.RN ---
PT didnt want to wait any longer and stated that he would be back.
== END 2025-05-01 18:06 | disposition left against medical advice (07) ==
LOC: ED 18:16
DX: M79.643 Pain in unspecified hand (principal)
CPT/HCPCS: 73130

== ENCOUNTER 2025-05-29 14:59 | Emergency (ER) | payer SELFPAY ==
[2025-05-29 14:59] VITALS: BP 120/94; PULSE 94; RESP 16; TEMP 36.8; O2SAT 98; BMI 19.0
--- NOTE | 2025-05-29 15:53 | EX.ED.UPPERE ---
HPI History of Present Illness Chief Complaint: Upper Extremity Injury Informant: patient Narrative Narrative: Patient is a 39-year-old male presenting with continued pain and swelling to his right hand along his 2nd and 3rd MCPs. He states he had an injury about a month ago where he fell at work. When he landed he somehow twisted his 2nd and 3rd fingers and had pain at his right hand and around the metacarpals and MCP joint. Since then he has had continued swelling and had a hard time making a fist. He is right-hand dominant. He notes he has had some ongoing issues with his right thumb as well but this was prior to the injury. He has been taking Tylenol and ibuprofen for relief but is still continuing pain and swelling. Denies any numbness or tingling. Denies any fever or chills. Denies any night sweats. No other complaints or concerns reported. Does admit that he has not followed up for his hand. [facility] Medical History Hypertension Home Medications ?Medication ?Instructions ?Recorded ?Last Taken ?Type ibuprofen 600 mg tablet 600 mg PO Q6H PRN pain #20 tabs 05/29/25 Unknown Rx Allergy/AdvReac Type Severity Reaction Status Date / Time No Known Allergies Allergy Verified 05/29/25 15:01 Family History no significant family his Surgical History History of facial surgery Social History Smoking Status: Current every day smoker tobacco type: cigarettes alcohol intake: current substance use type: marijuana ROS ROS ED Constitutional Constitutional ED: Denies chills or fever(s) Musculoskeletal Musculoskeletal: Reports other Details: right hand pain and swelling x 1 month ; Denies neck pain Integumentary Denies Abrasions or rash Neurologic Neurologic: Denies paresthesias or weakness Hematologic/Lymphatic Hematologic/Lymphatic: Denies easy bleeding or easy bruising EXAM Physical Exam Const Vital Signs: 05/29/25 14:59 Temperature 98.3 F Temperature Source Oral Pulse Rate 94 Respiratory Rate 16 Blood Pressure 120/94 H Blood Pressure Mean 102 Pulse Ox 98 Oxygen Delivery Method Room Air Positive well nourished and well developed General Appearance ED: well developed and NAD HEENT normocephalic and atraumatic Resp normal respiratory effort Cardio regular rate and regular rhythm Cardio Narrative: 2+ radial pulses Extremity Extremity Narrative: Swelling noted most pronounced over the second MCP but also present over the third MCP. There is some pain with range of motion of the joints. No short arc range of motion pain. There is a mild associated warmth but no cellulitic changes. Has hard time making a fist but otherwise has normal range of motion of the fingers including crossing the fingers, making okay sign, abduction and adduction. No other bony tenderness present. Neuro oriented x3, moves all extremities, no focal motor deficits and no sensory deficits noted Sensorium / Orientation: alert Psych mental status grossly normal Skin Lesions: no lesions Rashes: no rashes MDM MDM MDM Narrative Medical decision making narrative: Patient evaluated for continued right hand pain and swelling. Had injury a month ago. Differential clues occult fracture, osteoarthritic changes or ligamentous injury. He does not have any short arc range of motion pain suspicion for septic arthritis or gouty arthritis. Repeat x-ray viewed by myself as radiology does not show any acute process. Patient given referral for upper extremity orthopedics. Counseled on continued RICE therapy. Discharged home in stable condition. Discharge Plan Triage Chief Complaint: Upper Extremity Injury ED Provider: Marika Junior Dx/Rx/DC Orders Clinical Impression: Metacarpophalangeal joint pain of right hand Instructions: ED Arthralgia Prescriptions: New ibuprofen 600 mg tablet 600 mg PO Q6H PRN (Reason: pain) Qty: 20 0RF Primary Care Provider: Care Physician,No Primary Referrals: Yao Gaffney DO [Med Staff - Active Staff] - Care Physician,No Primary [Primary Care Provider] - Activity Restrictions/Additional Instructions: Continue to ice and rest your hand as needed. Follow-up with orthopedics for further evaluation. Your x-ray does not show a fracture however it is possible you could have a tendon injury or underlying inflammatory condition of the knuckle that is causing your symptoms. Print Language: Indonesian Disposition Disposition: Home, Self Care
--- NOTE | 2025-05-29 16:02 | RAD_ITS ---
PROCEDURE: HAND MIN 3 VIEWS 05/29/2025 REASON FOR EXAM: PAIN, SWELLING, TRAUMA 1 MONTH AGO TECHNIQUE: HAND MIN 3 VIEWS COMPARISON: Right hand study of 05/01/2025 RAD/Hand Min 3 Views IMPRESSION: An old healed 5th metacarpal fracture is again seen, appearance unchanged. Minimal degenerative changes appear stable. No fracture or dislocation is seen. Reading Location: [place] [id number]
[2025-05-29 17:41] VITALS: BP 132/96; PULSE 74; RESP 16; TEMP 36.8; O2SAT 99
== END 2025-05-29 17:42 | disposition home or self-care (01) ==
PROVIDERS: Emergency Provider Emergency Medicine; Visit Provider Emergency Medicine
DX: M25.541 Pain in joints of right hand (principal); I10 Essential (primary) hypertension; F17.210 Nicotine dependence, cigarettes, uncomplicated; W19.XXXA Unspecified fall, initial encounter; Y92.89 Other specified places as the place of occurrence of the external cause
CPT/HCPCS: 73130; 99282

== ENCOUNTER 2025-10-05 08:45 | Emergency (ER) | payer MEDICAID, SELFPAY ==
[2025-10-05 08:45] VITALS: BP 171/103; PULSE 101; RESP 18; TEMP 36.6; O2SAT 99
[2025-10-05 08:47] VITALS: BP 171/101; PULSE 98; RESP 18; TEMP 36.6; O2SAT 100; BMI 19.8
--- NOTE | 2025-10-05 08:59 | EDS_ITS ---
HPI History of Present Illness Chief Complaint: Abscess Informant: patient Narrative Narrative: 39 yo M with facial abscess, onset 4-5 days ago and gradually worsening. Pt reports he was able to squeeze some drainage from it yesterday. Pt mentions a likely ingrown hair as the source; states his girlfriend pulled the hair and he then went to work ?grinding,? which may have irritated the area. Prior similar abscesses [Unclear]. No specific associated Sx addressed. No systemic Sx addressed. No prior ED care for this issue mentioned. [facility] Medical History Hypertension Home Medications ?Medication ?Instructions ?Recorded ?Last Taken ?Type ibuprofen 600 mg tablet 600 mg PO Q6H PRN pain #20 t abs 05/29/25 Unknown Rx sulfamethoxazole 800 1 tab PO BID #14 TABLETS 03/25 Unknown Rx mg-trimethoprim 160 mg tablet Allergy/AdvReac Type Severity Reaction Status Date / Time No Known Allergies Allergy Verified 10/05/25 08:47 Family History no significant family his Surgical History History of facial surgery Social History Smoking Status: Current every day smoker tobacco type: cigarettes alcohol intake: current substance use type: marijuana ROS ROS ED Constitutional Constitutional ED: Denies chills or fever(s) Eyes Eyes: Denies change in vision or diplopia ENT ENT ED: Reports facial pain; Denies rhinorrhea or sore throat Cardiovascular Cardiovascular: Denies chest pain or palpitations Respiratory/Chest Respiratory/Chest: Denies cough or dyspnea Gastrointestinal Gastrointestinal: Denies abdominal pain, diarrhea, nausea or vomiting Genitourinary Genitourinary ED: Denies dysuria or hematuria Musculoskeletal Musculoskeletal: Denies back pain or neck pain Integumentary Reports abscess; Denies rash Neurologic Neurologic: Denies headache(s), paresthesias or weakness Psychiatric Psychiatric: Denies anxiety or suicidal thoughts EXAM Physical Exam Const Vital Signs: 10/05/25 08:45 10/05/25 08:47 Temperature 97.9 F 98 F Temperature Source Temporal Oral Pulse Rate 101 H 98 Respiratory Rate 18 18 Blood Pressure 171/103 H 171/101 H Blood Pressure Mean 125 124 Pulse Ox 99 100 Oxygen Delivery Method Room Air Room Air Positive well nourished and well developed General Appearance ED: well developed and NAD HEENT HEENT Narrative: Right cheek just to the lateral aspect of the mouth there is a facial abscess that is erythematous and tender without significant surrounding cellulitis, approximately 2 cm. There is no spontaneous expressible discharge. Patient does not have trismus or intraoral abnormality. Eyes PERRL and EOMs intact bilaterally Neck full ROM and supple Resp normal respiratory effort Extremity normal to inspection General Extremety ED: Negative for edema General Extremity: Negative for edema Neuro oriented x3, CN's II-XII intact bilaterally and no sensory deficits noted Sensorium / Orientation: awake and alert Motor Exam: strength 5/5 throughout Skin Skin Narrative: Solitary facial abscess to the right of the mouth without spontaneous expressible discharge MDM MDM MDM Narrative Medical decision making narrative: This abscess was incised and drained, there is no packing placed given its small nature and the location. Very small incision was made along with skin lines on the face, so as to minimize scarring. Patient was given aftercare instructions as well as Bactrim. He started taking penicillin at home and he was advised that in an appropriate antibiotic for what this is caused by, which I suspect is MRSA. Procedures Other Procedures Procedure(s): Simple abscess incision and drainage, right face: After informed written consent from the patient, the area was prepped with chlorhexidine and locally anesthetized with 1 cc of plain 1% lidocaine, a small incision was made with a #11 blade, and a moderate amount of pus was expressed. The abscess cavity collapsed. It was deloculated irrigated from the inside with sterile saline 20 cc, and dressed with bacitracin. Tolerated well no complications. Discharge Plan Triage Chief Complaint: Abscess ED Provider: Ron Torres Dx/Rx/DC Orders Clinical Impression: Abscess of face Instructions: ED Abscess Incision And Drainage Prescriptions: New sulfamethoxazole-trimethoprim 800-160 mg tablet 1 tab PO BID Qty: 14 0RF No Action ibuprofen 600 mg tablet 600 mg PO Q6H PRN (Reason: pain) Qty: 20 0RF Primary Care Provider: Care Physician,No Primary Referrals: Doctor,Your [Non-Staff, None] - As Needed Print Language: Slovenian Disposition Disposition: Home, Self Care
[2025-10-05] MEDS: Lidocaine 1% (20 ml mdv) 20 ML Vial INFILT (09:17)
[2025-10-05] MEDS: Smz/Tmp Ds Tablet 1 TABLET PO (10:50)
[2025-10-05 10:53] VITALS: BP 166/94; PULSE 88; RESP 16; TEMP 36.6; O2SAT 100
== END 2025-10-05 10:54 | disposition home or self-care (01) ==
PROVIDERS: Emergency Provider Emergency Medicine; Visit Provider Emergency Medicine
DX: L02.01 Cutaneous abscess of face (principal); I10 Essential (primary) hypertension; F17.210 Nicotine dependence, cigarettes, uncomplicated
CPT/HCPCS: 10060; 99282